=== PATIENT | female | born 1990 | race Asian ===

== ENCOUNTER 2019-12-15 18:22 | Emergency (ER) | payer OTHER ==
[~2019-12-15] VITALS: Ht 144.8 cm; Wt 49.5 kg
[2019-12-15 18:37] VITALS: BP 113/70; TEMP 98.7
[2019-12-15 20:20] VITALS: PULSE 90
== END 2019-12-15 20:21 | disposition home or self-care (01) ==
LOC: COL.ER 18:22
DX: S80.12XA Contusion of left lower leg, initial encounter (principal); R40.2412 Glasgow coma scale score 13-15, at arrival to emergency department; V43.52XA Car driver injured in collision with other type car in traffic accident, initial encounter